=== PATIENT | male | born 1970 | race Caucasian/White ===

== ENCOUNTER 2021-02-22 09:14 | Emergency (ER) | payer OTHER ==
[~2021-02-22] VITALS: Ht 180.3 cm; Wt 83.5 kg
[2021-02-22] MEDS ORDERED: MUPIROCIN1 G1 TOP (12:43)
[2021-02-22] MEDS ORDERED: VALACYCLOVIR1000 MG PO (12:43)
== END 2021-02-22 12:56 | disposition home or self-care (01) ==
LOC: ER 09:14
DX: N39.0 Urinary tract infection, site not specified (principal); R30.0 Dysuria; A60.02 Herpesviral infection of other male genital organs; B96.89 Other specified bacterial agents as the cause of diseases classified elsewhere

== ENCOUNTER 2021-12-26 13:45 | Emergency (ER) | payer OTHER ==
[~2021-12-26] VITALS: Ht 180.3 cm; Wt 84.4 kg
[~2021-12-26 13:45] MED LIST: ANTIFUNGAL113 GM TOP; MUPIROCIN1 G1 TOP; TYLENOL 120MG120 MG; VALACYCLOVIR1000 MG PO; VALTREX1000 MG PO; ZYRTEC10 M3 PO
== END 2021-12-26 21:45 | disposition home or self-care (01) ==
LOC: ER 13:45
DX: A60.00 Herpesviral infection of urogenital system, unspecified (principal)